=== PATIENT | female | born 1990 | race Caucasian/White ===

== ENCOUNTER 2020-08-25 00:19 | Inpatient (IN) | payer MEDICAID ==
--- NOTE | 2020-08-24 23:58 | PCM.LDHP ---
L&D History of Present Illness - General Date of Service: 08/24/20 Admit Problem/Dx: Patient Status Order with Admit Dx/Problem 08/24/20 23:50 Patient Status [ADT] Routine Admission Diagnosis/Problem Admission Diagnosis/Problem care Source of Information: Patient History Limitations: Reports: No Limitations - History of Present Illness Introduction:: 30-year-old at 40w0d (at midnight) presents to L&D for IOL due to term . Patient has been having Shelton Riggs contractions. Baby has been active. No vaginal bleeding or leaking of fluid. H&P Review of Systems - Review of Systems: Review Of Systems: See Below Free Text/Narrative: As of examination in clinic on 08/18/2020 General: Reports: No Symptoms HEENT: Reports: No Symptoms Pulmonary: Reports: No Symptoms Cardiovascular: Reports: No Symptoms Gastrointestinal: Reports: No Symptoms Genitourinary: Reports: No Symptoms Musculoskeletal: Reports: No Symptoms Skin: Reports: No Symptoms L&D Exam - Exam Exam: See Below (As of clinic appointment 08/18/2020) - OB Specific Movement: Active Heart Tones: Present Heart Tones per Min: 135 Presentation: Vertex - Peña Score Peña Score Cervix Position: Posterior Peña Score Consistency: Soft Peña Score Effacement: 31-50% Peña Score Dilation: 1-2 cm Peña Score Infant's Station: -2 Peña Score Total: 5 - Exam General: Alert, Oriented Lungs: Clear to Auscultation, Normal Respiratory Effort Cardiovascular: Regular Rate, Regular Rhythm. No: Systolic Murmur, Diastolic Murmur Genitourinary: Normal external exam Extremities: Pedal Edema (Trace bilaterally) Skin: Warm, Dry, Intact - Problem List (1) care SNOMED Code(s): 945857940, 78039850, 233632468, 353752394 ICD Code: Z34.90 - ENCNTR FOR SUPRVSN OF NORMAL , UNSP, UNSP TRIMESTER Status: Acute (2) Rh negative state in antepartum period SNOMED Code(s): 765544316 ICD Code: O26.899 - OTH RELATED CONDITIONS, UNSPECIFIED TRIMESTER; Z67.91 - UNSPECIFIED BLOOD TYPE, RH NEGATIVE Status: Acute (3) History of macrosomia in in prior , currently SNOMED Code(s): 59361459209555, 82791941834637 ICD Code: O09.299 - SUPRVSN OF PREG W POOR REPRODCTV OR OBSTET HISTORY, UNSP TRI Status: Acute (4) Impaired glucose in , antepartum SNOMED Code(s): 851360006, 648024142 ICD Code: O99.810 - ABNORMAL GLUCOSE COMPLICATING Status: Acute (5) Anemia in preg-unspec SNOMED Code(s): 23661973 ICD Code: O99.019 - ANEMIA COMPLICATING , UNSPECIFIED TRIMESTER Status: Acute Problem List Initiated/Reviewed/Updated: Yes Orders Last 24hrs: Active Orders 24 hr Category Date Time Status Patient Status [ADT] Routine ADT 08/24/20 23:50 Ordered Communication Order [RC] ASDIRECTED Care 08/24/20 23:50 Ordered Communication Order [RC] ASDIRECTED Care 08/24/20 23:52 Ordered Communication Order [RC] ASDIRECTED Care 08/24/20 23:52 Ordered Communication Order [RC] ASDIRECTED Care 08/24/20 23:52 Ordered Communication Order [RC] ASDIRECTED Care 08/24/20 23:52 Ordered Heart Tones [RC] PER UNIT ROUTINE Care 08/24/20 23:50 Ordered Monitoring [RC] PER UNIT ROUTINE Care 08/24/20 23:52 Ordered Nitrous Oxide Delivery [RC] ASDIRECTED Care 08/24/20 23:52 Ordered Notify Provider Vital Signs OB [RC] ASDIRECTED Care 08/24/20 23:50 Ordered Notify Provider [RC] PRN Care 08/24/20 23:50 Ordered Notify Provider [RC] PRN Care 08/24/20 23:52 Ordered Notify Provider [RC] PRN Care 08/24/20 23:52 Ordered Notify Provider [RC] STAT Care 08/24/20 23:52 Ordered OB Discontinue Nitrous Oxide [RC] ASDIRECTED Care 08/24/20 23:52 Ordered Pump Management, Intrathecal [RC] ASDIRECTED Care 08/24/20 23:50 Ordered Up ad Madai [RC] ASDIRECTED Care 08/24/20 23:50 Ordered Vaginal Exam [RC] PRN Care 08/24/20 23:52 Ordered Vital Signs [RC] PER UNIT ROUTINE Care 08/24/20 23:50 Ordered Regular Diet [DIET] Diet 08/25/20 Breakfast Ordered CBC W/O DIFF,HEMOGRAM [HEME] Routine Lab 08/24/20 23:50 Ordered CORONAVIRUS COVID-19 PCR PHL Stat Lab 08/24/20 23:50 Ordered Acetaminophen [TylenoL] Med 08/24/20 23:50 Ordered 650 mg PO Q4H PRN Butorphanol [Stadol] Med 08/24/20 23:50 Ordered 0.5 mg IVPUSH Q3H PRN Butorphanol [Stadol] Med 08/24/20 23:50 Ordered 1 mg IVPUSH Q3H PRN Carboprost Tromethamine [Hemabate DS] Med 08/24/20 23:50 Ordered 250 mcg IM ASDIRECTED PRN Lactated Ringers @ 125 MLS/HR(1000ml) Med 08/24/20 23:45 Ordered Lactated Ringers [Ringers, Lactated] 1,000 ml IV ASDIRECTED Lactated Ringers [Ringers, Lactated] 1,000 ml Med 08/24/20 23:50 Ordered IV BOLUS Lidocaine 1% [Xylocaine-MPF 1%] Med 08/24/20 23:50 Ordered 30 ml INJECT ASDIRECTED PRN Methylergonovine [Methergine] Med 08/24/20 23:50 Ordered 0.2 mg IM ASDIRECTED PRN Ondansetron [Zofran] Med 08/24/20 23:50 Ordered 4 mg IVPUSH Q4H PRN Oxytocin 30 Units in NS @ 2 MUNITS/MIN(500ml) Med 08/24/20 23:45 Ordered Oxytocin/Normal Saline [Pitocin in NS 30 UNIT/500 ML] 30 unit in 500 ml IV TITRATE Sodium Chloride 0.9% [Saline Flush] Med 08/24/20 23:50 Ordered 10 ml FLUSH ASDIRECTED PRN Tranexamic Acid [Cyklokapron] 1,000 mg Med 08/24/20 23:50 Ordered Sodium Chloride 0.9% [Normal Saline] 100 ml IV ONETIME fentaNYL [Sublimaze] Med 08/24/20 23:50 Ordered 100 mcg IVPUSH Q1H PRN miSOPROStoL [Cytotec] Med 08/24/20 23:52 Ordered 25 mcg VAG Q4H PRN miSOPROStoL [Cytotec] Med 08/24/20 23:50 Ordered 800 mcg RECTAL ASDIRECTED PRN Saline Lock Insert [OM.PC] Routine Oth 08/24/20 23:50 Ordered Resuscitation Status Routine Resus Stat 08/24/20 23:50 Ordered Medication Orders Acetaminophen (Tylenol) 650 mg PO Q4H PRN PRN Reason: Pain (Mild 1-3) and fever Butorphanol Tartrate (Stadol) 0.5 mg IVPUSH Q3H PRN PRN Reason: Pain Butorphanol Tartrate (Stadol) 1 mg IVPUSH Q3H PRN PRN Reason: Pain Carboprost Tromethamine (Hemabate Ds) 250 mcg IM ASDIRECTED PRN PRN Reason: HEMORRHAGE Fentanyl (Sublimaze) 100 mcg IVPUSH Q1H PRN PRN Reason: Pain (moderate 4-6) Tranexamic Acid 1,000 mg/ (Sodium Chloride) 110 mls @ 660 mls/hr IV ONETIME PRN PRN Reason: Bleeding Lactated Ringer's (Ringers, Lactated) 1,000 mls @ 999 mls/hr IV BOLUS ONE Stop: 08/25/20 00:50 Lactated Ringer's (Ringers, Lactated) 1,000 mls @ 125 mls/hr IV ASDIRECTED MEEK Oxytocin/Sodium Chloride (Pitocin In Ns 30 Unit/500 Ml) 30 unit in 500 mls @ 2 mls/hr IV TITRATE MEEK; Protocol Lidocaine HCl (Xylocaine-Mpf 1%) 30 ml INJECT ASDIRECTED PRN PRN Reason: Perineal Repair Methylergonovine Maleate (Methergine) 0.2 mg IM ASDIRECTED PRN PRN Reason: Hemorrhage Misoprostol (Cytotec) 800 mcg RECTAL ASDIRECTED PRN PRN Reason: Hemorrhage Misoprostol (Cytotec) 25 mcg VAG Q4H PRN PRN Reason: cervical ripening Ondansetron HCl (Zofran) 4 mg IVPUSH Q4H PRN PRN Reason: Nausea/Vomiting Sodium Chloride (Saline Flush) 10 ml FLUSH ASDIRECTED PRN PRN Reason: Keep Vein Open Assessment/Plan Comment:: 30-year-old at 40w0d for IOL 1. Initiate routine intrapartum orders 2. Plan for cervical ripening with Cytotec 3. Pitocin and AROM planned for augmentation as needed 4. Expectant management. Anticipate Felicitas Smith MD
[~2020-08-25 00:19] MED LIST: Butorphanol 2 MG/ML SDV IVPUSH PRN; Carboprost Tromethamine 250 MCG/1 ML Amp IM PRN; Lactated Ringers 1,000 ML IV ONE; Lidocaine 1% 30 ML SDV INJECT PRN; Methylergonovine 0.2 MG/1 ML Amp IM PRN; Misoprostol 400 MCG (4 X 100 MCG TAB) RECTAL PRN; Ondansetron 4 MG/2 ML SDV IVPUSH PRN; Oxytocin/Normal Saline 30 UNIT/500 ML BAG IV SCH; Sodium Chloride 0.9% 10 ML Syringe FLUSH PRN; Tranexamic Acid 1,000 MG in Sodium Chloride 0.9% 100 ML IV PRN; fentaNYL 100 MCG/2 ML SDV IVPUSH PRN
[2020-08-25] MEDS ORDERED: Sodium Bicarbonate 4.2% 2.5 MEQ/5 ML SDV ONE ×2 (00:30→10:43)
[2020-08-25] MEDS ORDERED: EPINEPHrine 1 MG/1 ML Amp ONE ×2 (00:30→10:43)
[2020-08-25] MEDS ORDERED: fentaNYL 100 MCG/2 ML SDV ITHECAL ONE (00:30)
[2020-08-25] MEDS: Misoprostol 25 MCG (1/4 of 100 MCG) Tab VAG PRN ×2 (01:33→05:35)
[2020-08-25] MEDS: Lactated Ringers 1,000 ML IV SCH ×2 (10:10→11:01)
[2020-08-25] MEDS ORDERED: fentaNYL 100 MCG/2 ML SDV ONE (10:43)
--- NOTE | 2020-08-25 11:03 | PCM.SN.2 ---
- Free Text/Narrative Note: Intrathecal. Sitting position, sterile prep and drape. 1% lidocaine w bicarb for skinwheal to L2 L3 interspace, introducer, 24 ga pencan x 1. Pos CSF, neg heme, neg parasthesia. 0.1 ml pf 1:1000 epi, 20 mcg pf sufenta, 30 mcg pf fentanyl, 0.4 ml pf ns and 6 mg of 0.75% marcaine injected after CSF aspiration. Pt to L lateral position. Procedure time 1045 to 1115
--- NOTE | 2020-08-25 13:43 | PCM.DEL ---
L & D Note - General Info Date of Service: 08/25/20 Mother's Due Date: 08/25/20 - Delivery Note Labor: Augmented by ARM Cervical Ripening Method: Misoprostil Delivery Outcome: Livebirth Infant Delivery Method: Spontaneous Vaginal Delivery-Single Infant Delivery Mode: Spontaneous Presentation: Left Occiput Posterior (LOP) Nuchal Cord: None Anesthesia Type: Intrathecal, Nitrous Oxide Amniotic Fluid Description: Clear Episiotomy Type: None Laceration: Periurethral Placenta: Intact Cord: 3 Vessels Estimated Blood Loss: 50 Resuscitation Needed: Yes [place]: Bulb Syringe Provider: Felicitas Smith Score 1 min: 8 Score 5 min: 9 Delivery Comments (Free Text/Narrative):: Patient is now a that presented for induction of labor secondary to anemia and history of macrosomia. Induction with cytotec x2 doses augmented with AROM. Patient progressed to complete without complication. uncomplicated . Delivered viable infant girl weighing 3990g at 1322. Placenta delivered spontaneous shortly after. Delivery over intact perineum. - General Info Date of Service: 08/25/20 Admission Dx/Problem (Free Text): Patient Status Order with Admit Dx/Problem 08/24/20 23:50 Patient Status [ADT] Routine Admission Diagnosis/Problem Admission Diagnosis/Problem care Functional Status: Reports: Pain Controlled - Review of Systems General: Reports: No Symptoms HEENT: Reports: No Symptoms Pulmonary: Reports: No Symptoms Cardiovascular: Reports: No Symptoms Gastrointestinal: Reports: No Symptoms Genitourinary: Reports: No Symptoms Musculoskeletal: Reports: No Symptoms Skin: Reports: No Symptoms Neurological: Reports: No Symptoms Psychiatric: Reports: No Symptoms - Patient Data Vitals - Most Recent: Last Vital Signs Temp 97.3 F 08/25/20 12:15 Pulse 78 08/25/20 12:15 Resp 18 08/25/20 12:15 BP 108/65 08/25/20 12:00 Pulse Ox 97 08/25/20 12:15 Weight - Most Recent: 291 lb I&O - Last 24 Hours: Intake & Output 08/24/20 08/25/20 08/25/20 22:59 06:59 14:59 Intake Total 1000 Balance 1000 Lab Results Last 24 Hours: Laboratory Results - last 24 hr 08/25/20 08/25/20 Range/Units 00:40 01:25 WBC 7.2 (5.0-10.0) 10^3/uL RBC 4.08 L (4.2-5.4) 10^6/uL Hgb 11.2 L (12.0-16.0) g/dL Hct 35.0 L (37.0-47.0) % MCV 85.8 (80-100) fL MCH 27.5 (27.0-34.0) pg MCHC 32.0 L (33.0-35.0) g/dL Plt Count 150 (150-450) 10^3/uL SARS CoV-2 RNA Rapid ALTA Negative (NEGATIVE) Med Orders - Current: Current Medications Acetaminophen (Tylenol) 650 mg PO Q4H PRN PRN Reason: Pain (Mild 1-3) and fever Butorphanol Tartrate (Stadol) 0.5 mg IVPUSH Q3H PRN PRN Reason: Pain Butorphanol Tartrate (Stadol) 1 mg IVPUSH Q3H PRN PRN Reason: Pain Carboprost Tromethamine (Hemabate Ds) 250 mcg IM ASDIRECTED PRN PRN Reason: HEMORRHAGE Fentanyl (Sublimaze) 100 mcg IVPUSH Q1H PRN PRN Reason: Pain (moderate 4-6) Tranexamic Acid 1,000 mg/ (Sodium Chloride) 110 mls @ 660 mls/hr IV ONETIME PRN PRN Reason: Bleeding Lactated Ringer's (Ringers, Lactated) 1,000 mls @ 125 mls/hr IV ASDIRECTED [facility] Last Admin: 08/25/20 11:01 Dose: 125 mls/hr Documented by: Oxytocin/Sodium Chloride (Pitocin In Ns 30 Unit/500 Ml) 30 unit in 500 mls @ 2 mls/hr IV TITRATE [facility]; Protocol Last Admin: 08/25/20 13:30 Dose: 500 munits/min, 500 mls/hr Documented by: Lidocaine HCl (Xylocaine-Mpf 1%) 30 ml INJECT ASDIRECTED PRN PRN Reason: Perineal Repair Methylergonovine Maleate (Methergine) 0.2 mg IM ASDIRECTED PRN PRN Reason: Hemorrhage Misoprostol (Cytotec) 800 mcg RECTAL ASDIRECTED PRN PRN Reason: Hemorrhage Misoprostol (Cytotec) 25 mcg VAG Q4H PRN PRN Reason: cervical ripening Last Admin: 08/25/20 05:35 Dose: 25 mcg Documented by: Ondansetron HCl (Zofran) 4 mg IVPUSH Q4H PRN PRN Reason: Nausea/Vomiting Last Admin: 08/25/20 10:38 Dose: 4 mg Documented by: Sodium Chloride (Saline Flush) 10 ml FLUSH ASDIRECTED PRN PRN Reason: Keep Vein Open Discontinued Medications Epinephrine HCl (Adrenalin) Confirm Administered Dose 1 mg .ROUTE .STK-MED ONE Stop: 08/25/20 10:44 Last Admin: 08/25/20 12:03 Dose: Not Given Documented by: Epinephrine HCl (Adrenalin) 0.1 mg .XX .STK-MED ONE Stop: 08/25/20 00:31 Fentanyl (Sublimaze) Confirm Administered Dose 100 mcg .ROUTE .STK-MED ONE Stop: 08/25/20 10:44 Last Admin: 08/25/20 12:05 Dose: Not Given Documented by: Fentanyl (Sublimaze) 30 mcg ITHECAL .STK-MED ONE Stop: 08/25/20 00:31 Lactated Ringer's (Ringers, Lactated) 1,000 mls @ 999 mls/hr IV BOLUS ONE Stop: 08/25/20 00:50 Sodium Bicarbonate (Sodium Bicarbonate 4.2%) Confirm Administered Dose 2.5 meq .ROUTE .STK-MED ONE Stop: 08/25/20 10:44 Last Admin: 08/25/20 12:04 Dose: Not Given Documented by: Sodium Bicarbonate (Sodium Bicarbonate 4.2%) 0.5 meq .XX .STK-MED ONE Stop: 08/25/20 00:31 Sufentanil Citrate (Sufenta) Confirm Administered Dose 50 mcg .ROUTE .STK-MED ONE Stop: 08/25/20 10:44 Last Admin: 08/25/20 12:05 Dose: Not Given Documented by: Sufentanil Citrate (Sufenta) 20 mcg ITHECAL .STK-MED ONE Stop: 08/25/20 00:31 - Exam (Female) Exam: Normal External Exam, Normal Bimanual Exam, Vaginal Bleeding (minimal) - Problem List & Annotations (1) (normal spontaneous vaginal delivery) SNOMED Code(s): 05530960, 658664566 Code(s): O80 - ENCOUNTER FOR FULL-TERM UNCOMPLICATED DELIVERY Status: Acute Current Visit: Yes - Problem List Review Problem List Initiated/Reviewed/Updated: Yes - Plan Plan:: 30-year-old now at 40w0d s/p 1. Initiate routine cares Lorin Senior MD
[2020-08-25] MEDS ORDERED: Tranexamic Acid 1,000 MG in Sodium Chloride 0.9% 100 ML IV PRN (13:55)
[2020-08-25] MEDS ORDERED: Sodium Chloride 0.9% 10 ML Syringe FLUSH PRN (13:55)
[2020-08-25] MEDS ORDERED: Benzocaine/Menthol 20%-0.5% Spray 56 GM Canister TOP PRN (14:00)
[2020-08-25] MEDS ORDERED: Simethicone 80 MG Tab.Chew PO PRN (14:00)
[2020-08-25] MEDS: Acetaminophen 325 MG Tab PO PRN (18:25)
[2020-08-25] MEDS: Ibuprofen 800 MG Tab PO PRN (18:27)
[2020-08-25] MEDS: Docusate Sodium 100 MG Cap PO PRN (21:18)
[2020-08-26] MEDS: Ibuprofen 800 MG Tab PO PRN ×2 (01:30→09:40)
[2020-08-26] MEDS: Acetaminophen 325 MG Tab PO PRN ×2 (01:31→08:47)
[2020-08-26] MEDS: Docusate Sodium 100 MG Cap PO PRN (08:47)
[2020-08-26] MEDS ORDERED: Prenatal Multivitamin with Calcium/Folic Acid/Iron Tab PO SCH (09:00)
--- NOTE | 2020-08-26 09:16 | PCM.PN ---
- General Info Date of Service: 08/26/20 Admission Dx/Problem (Free Text): Patient Status Order with Admit Dx/Problem 08/24/20 23:50 Patient Status [ADT] Routine Admission Diagnosis/Problem Admission Diagnosis/Problem care Subjective Update: patient reports doing well. she has been urinating well. Had a bowel movement last night. lochia is mild in nature. She is concerned as baby is not latching well and did have an episode of desaturation. This is causing her stress. otherwise doing well. Functional Status: Reports: Pain Controlled - Review of Systems General: Reports: Fever, Chills HEENT: Reports: No Symptoms Pulmonary: Reports: No Symptoms Cardiovascular: Reports: No Symptoms Gastrointestinal: Reports: No Symptoms Genitourinary: Reports: No Symptoms Musculoskeletal: Reports: No Symptoms Skin: Reports: No Symptoms Neurological: Reports: No Symptoms Psychiatric: Reports: No Symptoms - Patient Data Vitals - Most Recent: Last Vital Signs Temp 98.5 F 08/25/20 20:00 Pulse 80 08/25/20 20:00 Resp 18 08/25/20 20:00 BP 118/76 08/25/20 20:00 Pulse Ox 99 08/25/20 20:00 Weight - Most Recent: 291 lb I&O - Last 24 Hours: Intake & Output 08/25/20 08/26/20 08/26/20 22:59 06:59 14:59 Intake Total 1 Output Total 400 Balance -399 Lab Results Last 24 Hours: Laboratory Results - last 24 hr 08/25/20 08/26/20 Range/Units 01:24 05:52 WBC 5.4 (5.0-10.0) 10^3/uL RBC 3.39 L (4.2-5.4) 10^6/uL Hgb 9.4 L D (12.0-16.0) g/dL Hct 29.7 L (37.0-47.0) % MCV 87.6 (80-100) fL MCH 27.7 (27.0-34.0) pg MCHC 31.6 L (33.0-35.0) g/dL Plt Count 111 L (150-450) 10^3/uL Blood Type O NEGATIVE Gel Antibody Screen Negative Rhogam Indicated Yes, baby rh pos H Med Orders - Current: Current Medications Acetaminophen (Tylenol) 650 mg PO Q4H PRN PRN Reason: Pain (Mild 1-3) and fever Last Admin: 08/26/20 01:31 Dose: 650 mg Documented by: Benzocaine/Menthol (Dermoplast Pain Relief Almond) 0 gm TOP Q4H PRN PRN Reason: Perineal comfort measures Butorphanol Tartrate (Stadol) 0.5 mg IVPUSH Q3H PRN PRN Reason: Pain Butorphanol Tartrate (Stadol) 1 mg IVPUSH Q3H PRN PRN Reason: Pain Carboprost Tromethamine (Hemabate Ds) 250 mcg IM ASDIRECTED PRN PRN Reason: HEMORRHAGE Docusate Sodium (Colace) 100 mg PO BID PRN PRN Reason: Constipation Last Admin: 08/25/20 21:18 Dose: 100 mg Documented by: Fentanyl (Sublimaze) 100 mcg IVPUSH Q1H PRN PRN Reason: Pain (moderate 4-6) Tranexamic Acid 1,000 mg/ (Sodium Chloride) 110 mls @ 660 mls/hr IV ONETIME PRN PRN Reason: Bleeding Lactated Ringer's (Ringers, Lactated) 1,000 mls @ 125 mls/hr IV ASDIRECTED MEEK Last Admin: 08/25/20 11:01 Dose: 125 mls/hr Documented by: Oxytocin/Sodium Chloride (Pitocin In Ns 30 Unit/500 Ml) 30 unit in 500 mls @ 2 mls/hr IV TITRATE MEEK; Protocol Last Titration: 08/25/20 16:10 Dose: Infused Documented by: Ibuprofen (Motrin) 800 mg PO Q8H PRN PRN Reason: Mild Pain or Fever, use 2nd Last Admin: 08/26/20 01:30 Dose: 800 mg Documented by: Lidocaine HCl (Xylocaine-Mpf 1%) 30 ml INJECT ASDIRECTED PRN PRN Reason: Perineal Repair Methylergonovine Maleate (Methergine) 0.2 mg IM ASDIRECTED PRN PRN Reason: Hemorrhage Misoprostol (Cytotec) 800 mcg RECTAL ASDIRECTED PRN PRN Reason: Hemorrhage Misoprostol (Cytotec) 25 mcg VAG Q4H PRN PRN Reason: cervical ripening Last Admin: 08/25/20 05:35 Dose: 25 mcg Documented by: Ondansetron HCl (Zofran) 4 mg IVPUSH Q4H PRN PRN Reason: Nausea/Vomiting Last Admin: 08/25/20 10:38 Dose: 4 mg Documented by: Prenat Multivit/Open Cut Examiner/Iron/Folic Ac ( Plus Iron) 1 each PO DAILY MEEK Simethicone (Simethicone) 80 mg PO Q4HR PRN PRN Reason: Gas Sodium Chloride (Saline Flush) 10 ml FLUSH ASDIRECTED PRN PRN Reason: Keep Vein Open Witch Daisy (Medi-Pads) 1 each TOP Q4HR PRN PRN Reason: Perineal Comfort Measure Discontinued Medications Epinephrine HCl (Adrenalin) Confirm Administered Dose 1 mg .ROUTE .STK-MED ONE Stop: 08/25/20 10:44 Last Admin: 08/25/20 12:03 Dose: Not Given Documented by: Epinephrine HCl (Adrenalin) 0.1 mg .XX .STK-MED ONE Stop: 08/25/20 00:31 Fentanyl (Sublimaze) Confirm Administered Dose 100 mcg .ROUTE .STK-MED ONE Stop: 08/25/20 10:44 Last Admin: 08/25/20 12:05 Dose: Not Given Documented by: Fentanyl (Sublimaze) 30 mcg ITHECAL .STK-MED ONE Stop: 08/25/20 00:31 Lactated Ringer's (Ringers, Lactated) 1,000 mls @ 999 mls/hr IV BOLUS ONE Stop: 08/25/20 00:50 Last Admin: 08/25/20 19:56 Dose: Not Given Documented by: Sodium Bicarbonate (Sodium Bicarbonate 4.2%) Confirm Administered Dose 2.5 meq .ROUTE .STK-MED ONE Stop: 08/25/20 10:44 Last Admin: 08/25/20 12:04 Dose: Not Given Documented by: Sodium Bicarbonate (Sodium Bicarbonate 4.2%) 0.5 meq .XX .STK-MED ONE Stop: 08/25/20 00:31 Sufentanil Citrate (Sufenta) Confirm Administered Dose 50 mcg .ROUTE .STK-MED ONE Stop: 08/25/20 10:44 Last Admin: 08/25/20 12:05 Dose: Not Given Documented by: Sufentanil Citrate (Sufenta) 20 mcg ITHECAL .STK-MED ONE Stop: 08/25/20 00:31 - Exam General: Alert, Oriented Lungs: Clear to Auscultation, Normal Respiratory Effort Cardiovascular: Regular Rate, Regular Rhythm GI/Abdominal Exam: Normal Bowel Sounds (uterus 2cm below the umbilicus) Extremities: Pedal Edema (trace) Sepsis Event Note - Evaluation Sepsis Screening Result: No Definite Risk - Problem List & Annotations (1) (normal spontaneous vaginal delivery) SNOMED Code(s): 74733491, [id number] Code(s): O80 - ENCOUNTER FOR FULL-TERM UNCOMPLICATED DELIVERY Status: Acute Current Visit: Yes - Problem List Review Problem List Initiated/Reviewed/Updated: Yes - My Orders Last 24 Hours: My Active Orders 08/25/20 13:55 Up ad Madai [RC] ASDIRECTED Assess Lochia [WOMSER] Per Unit Routine Assess Uterine Involution [WOMSER] Per Unit Routine Breast Pump [WOMSER] Per Unit Routine Ice Therapy [OM.PC] Per Unit Routine Perineal Care [OM.PC] Per Unit Routine Saline Lock Insert [OM.PC] Urgent Sitz Bath [OM.PC] Per Unit Routine 08/25/20 14:00 Benzocaine/Menthol [Dermoplast Pain Relief Almond] See Dose Instructions TOP Q4H PRN Docusate Sodium [Colace] 100 mg PO BID PRN Ibuprofen [Motrin] 800 mg PO Q8H PRN Simethicone 80 mg PO Q4HR PRN witch Daisy [Medi-Pads] 1 each TOP Q4HR PRN 08/25/20 14:07 Resuscitation Status Routine 08/25/20 Dinner Regular Diet [DIET] 08/26/20 05:52 MATERNAL BLEED, SCREEN [REF] Routine 08/26/20 09:00 Vit with Ca/FA/Iron [ Plus Iron] 1 each PO DAILY - Plan Plan:: 30-year-old now at 40w0d PPD1 of a 1. continue routine cares 2. work on and encourage 3. likely will discharge tomorrow Lorin Senior MD
--- NOTE | 2020-08-26 16:09 | PCM.DCSUM1 ---
Discharge Summary - Hospital Course Free Text/Narrative:: Patient admitted for IOL secondary to anemia and history of macrosomia. Delivered viable infant girl on 08/25/2020 vis . Post period uncomplicated. Diagnosis: Stroke: No - Discharge Data Discharge Date: 08/26/20 Discharge Disposition: Home, Self-Care 01 Condition: Good - Referral to Home Health Primary Care Physician: Mariaa Smith MD - Discharge Diagnosis/Problem(s) (1) (normal spontaneous vaginal delivery) SNOMED Code(s): 30705027, [id number] ICD Code: O80 - ENCOUNTER FOR FULL-TERM UNCOMPLICATED DELIVERY Status: Acute Current Visit: Yes - Patient Instructions Diet: Usual Diet as Tolerated Activity: As Tolerated (Pelvic rest until appointment ) Driving: May Drive Today Showering/Bathing: May Shower Notify Provider of: Fever, Increased Pain, Nausea and/or Vomiting - Discharge Plan *PRESCRIPTION DRUG MONITORING PROGRAM REVIEWED*: Yes *COPY OF PRESCRIPTION DRUG MONITORING REPORT IN PATIENT JESSE: Not Applicable Home Medications: Home Meds Ferrous Sulfate 325 mg PO DAILY 08/25/20 [History] Pnv No.95/Ferrous Fum/Folic AC [ Caplet] 1 each PO DAILY 08/25/20 [History] Oxygen Therapy Mode: Room Air Patient Handouts: Vaginal Delivery, Care After Vaginal Delivery Referrals: Felicitas Smith MD [Primary Care Provider] - (Please schedule 6 week appointment with PCP. ) - Discharge Summary/Plan Comment DC Time >30 min.: Yes Discharge Summary/Plan Comment: Home to self care perineal cares - General Info Date of Service: 08/26/20 Admission Dx/Problem (Free Text: Patient Status Order with Admit Dx/Problem 08/24/20 23:50 Patient Status [ADT] Routine Admission Diagnosis/Problem Admission Diagnosis/Problem IOL Subjective Update: patient reports doing well. she has been urinating well. Had a bowel movement last night. lochia is mild in nature. She is concerned as baby is not latching well and did have an episode of desaturation. This is causing her stress. otherwise doing well. By 1600 infant latch and feeding had significantly improved. Parents more comfortable with discharge home. Functional Status: Reports: Pain Controlled - Review of Systems General: Reports: No Symptoms HEENT: Reports: No Symptoms Pulmonary: Reports: No Symptoms Cardiovascular: Reports: No Symptoms Gastrointestinal: Reports: No Symptoms Genitourinary: Reports: No Symptoms Musculoskeletal: Reports: No Symptoms Skin: Reports: No Symptoms Neurological: Reports: No Symptoms Psychiatric: Reports: No Symptoms - Patient Data Vitals - Most Recent: Last Vital Signs Temp 98.1 F 08/26/20 08:00 Pulse 86 08/26/20 08:00 Resp 16 08/26/20 08:00 BP 122/83 08/26/20 08:00 Pulse Ox 100 08/26/20 08:00 Weight - Most Recent: 291 lb Lab Results - Last 24 hrs: Laboratory Results - last 24 hr 08/25/20 08/26/20 Range/Units 01:24 05:52 WBC 5.4 (5.0-10.0) 10^3/uL RBC 3.39 L (4.2-5.4) 10^6/uL Hgb 9.4 L D (12.0-16.0) g/dL Hct 29.7 L (37.0-47.0) % MCV 87.6 (80-100) fL MCH 27.7 (27.0-34.0) pg MCHC 31.6 L (33.0-35.0) g/dL Plt Count 111 L (150-450) 10^3/uL Blood Type O NEGATIVE Gel Antibody Screen Negative Rhogam Indicated Yes, baby rh pos H Med Orders - Current: Current Medications Acetaminophen (Tylenol) 650 mg PO Q4H PRN PRN Reason: Pain (Mild 1-3) and fever Last Admin: 08/26/20 08:47 Dose: 650 mg Documented by: Benzocaine/Menthol (Dermoplast Pain Relief [place]) 0 gm TOP Q4H PRN PRN Reason: Perineal comfort measures Butorphanol Tartrate (Stadol) 0.5 mg IVPUSH Q3H PRN PRN Reason: Pain Butorphanol Tartrate (Stadol) 1 mg IVPUSH Q3H PRN PRN Reason: Pain Carboprost Tromethamine (Hemabate Ds) 250 mcg IM ASDIRECTED PRN PRN Reason: HEMORRHAGE Docusate Sodium (Colace) 100 mg PO BID PRN PRN Reason: Constipation Last Admin: 08/26/20 08:47 Dose: 100 mg Documented by: Fentanyl (Sublimaze) 100 mcg IVPUSH Q1H PRN PRN Reason: Pain (moderate 4-6) Tranexamic Acid 1,000 mg/ (Sodium Chloride) 110 mls @ 660 mls/hr IV ONETIME PRN PRN Reason: Bleeding Lactated Ringer's (Ringers, Lactated) 1,000 mls @ 125 mls/hr IV ASDIRECTED MEEK Last Admin: 08/25/20 11:01 Dose: 125 mls/hr Documented by: Oxytocin/Sodium Chloride (Pitocin In Ns 30 Unit/500 Ml) 30 unit in 500 mls @ 2 mls/hr IV TITRATE MEEK; Protocol Last Titration: 08/25/20 16:10 Dose: Infused Documented by: Ibuprofen (Motrin) 800 mg PO Q8H PRN PRN Reason: Mild Pain or Fever, use 2nd Last Admin: 08/26/20 09:40 Dose: 800 mg Documented by: Lidocaine HCl (Xylocaine-Mpf 1%) 30 ml INJECT ASDIRECTED PRN PRN Reason: Perineal Repair Methylergonovine Maleate (Methergine) 0.2 mg IM ASDIRECTED PRN PRN Reason: Hemorrhage Misoprostol (Cytotec) 800 mcg RECTAL ASDIRECTED PRN PRN Reason: Hemorrhage Misoprostol (Cytotec) 25 mcg VAG Q4H PRN PRN Reason: cervical ripening Last Admin: 08/25/20 05:35 Dose: 25 mcg Documented by: Ondansetron HCl (Zofran) 4 mg IVPUSH Q4H PRN PRN Reason: Nausea/Vomiting Last Admin: 08/25/20 10:38 Dose: 4 mg Documented by: Prenat Multivit/Hot Plate [employer]/Iron/Folic Ac ( Plus Iron) 1 each PO DAILY [facility] Last Admin: 08/26/20 08:48 Dose: 1 each Documented by: Simethicone (Simethicone) 80 mg PO Q4HR PRN PRN Reason: Gas Sodium Chloride (Saline Flush) 10 ml FLUSH ASDIRECTED PRN PRN Reason: Keep Vein Open Witch Daisy (Medi-Pads) 1 each TOP Q4HR PRN PRN Reason: Perineal Comfort Measure Discontinued Medications Epinephrine HCl (Adrenalin) Confirm Administered Dose 1 mg .ROUTE .STK-MED ONE Stop: 08/25/20 10:44 Last Admin: 08/25/20 12:03 Dose: Not Given Documented by: Epinephrine HCl (Adrenalin) 0.1 mg .XX .STK-MED ONE Stop: 08/25/20 00:31 Fentanyl (Sublimaze) Confirm Administered Dose 100 mcg .ROUTE .STK-MED ONE Stop: 08/25/20 10:44 Last Admin: 08/25/20 12:05 Dose: Not Given Documented by: Fentanyl (Sublimaze) 30 mcg ITHECAL .STK-MED ONE Stop: 08/25/20 00:31 Lactated Ringer's (Ringers, Lactated) 1,000 mls @ 999 mls/hr IV BOLUS ONE Stop: 08/25/20 00:50 Last Admin: 08/25/20 19:56 Dose: Not Given Documented by: Sodium Bicarbonate (Sodium Bicarbonate 4.2%) Confirm Administered Dose 2.5 meq .ROUTE .STK-MED ONE Stop: 08/25/20 10:44 Last Admin: 08/25/20 12:04 Dose: Not Given Documented by: Sodium Bicarbonate (Sodium Bicarbonate 4.2%) 0.5 meq .XX .STK-MED ONE Stop: 08/25/20 00:31 Sufentanil Citrate (Sufenta) Confirm Administered Dose 50 mcg .ROUTE .STK-MED ONE Stop: 08/25/20 10:44 Last Admin: 08/25/20 12:05 Dose: Not Given Documented by: Sufentanil Citrate (Sufenta) 20 mcg ITHECAL .STK-MED ONE Stop: 08/25/20 00:31 - Exam Physical Findings Comments:: please see AM progress note for exam
== END 2020-08-26 17:00 | disposition home or self-care (01) | DRG 807 ==
LOC: DL.OBCHECK 00:19 → DL.OB 00:29 → OBSVTOIN 13:22 → DL.OB 13:22
PROVIDERS: ADMIT Family Medicine; ATTEND Family Medicine
PROC: 10E0XZZ Delivery of Products of Conception, External Approach (ICD-10-PCS; principal; 2020-08-25)
PROC: 10907ZC Drainage of Amniotic Fluid, Therapeutic from Products of Conception, Via Natural or Artificial Opening (ICD-10-PCS; 2020-08-25)
PROC: 3E033VJ Introduction of Other Hormone into Peripheral Vein, Percutaneous Approach (ICD-10-PCS; 2020-08-25)
PROC: 3E0234Z Introduction of Serum, Toxoid and Vaccine into Muscle, Percutaneous Approach (ICD-10-PCS; 2020-08-25)
DX: O99.02 Anemia complicating childbirth (principal); O48.0 Post-term pregnancy; O26.893 Other specified pregnancy related conditions, third trimester; O99.814 Abnormal glucose complicating childbirth; Z20.828 Contact with and (suspected) exposure to other viral communicable diseases; D64.9 Anemia, unspecified; Z37.0 Single live birth; Z3A.40 40 weeks gestation of pregnancy; Z87.891 Personal history of nicotine dependence; Z79.899 Other long term (current) drug therapy; Z67.41 Type O blood, Rh negative
CPT/HCPCS: 01967; 36415; 36430; 59025; 59409; 85027; 85461; 86850; 86900; 86901; A9270-GY; J0171; J2405; J2590; J2790; J3010; J7120; U0002

== ENCOUNTER 2023-04-26 07:54 | Inpatient (IN) | payer MEDICAID ==
[2023-04-26] MEDS ORDERED: fentaNYL 100 MCG/2 ML SDV IVPUSH PRN (08:38)
[2023-04-26] MEDS ORDERED: Misoprostol 400 MCG (4 X 100 MCG TAB) RECTAL PRN (08:38)
[2023-04-26] MEDS ORDERED: Lidocaine 1% 30 ML SDV INJECT PRN (08:38)
[2023-04-26] MEDS ORDERED: Methylergonovine 0.2 MG/1 ML Amp IM PRN (08:38)
[2023-04-26] MEDS ORDERED: Tranexamic Acid 1,000 MG in Sodium Chloride 0.9% 100 ML IV PRN (08:38)
[2023-04-26] MEDS ORDERED: Carboprost Tromethamine 250 MCG/1 ML Amp IM PRN (08:38)
[2023-04-26] MEDS ORDERED: Sodium Chloride 0.9% 10 ML Syringe FLUSH PRN (08:38)
[2023-04-26] MEDS ORDERED: Acetaminophen 325 MG Tab PO PRN (08:38)
[2023-04-26] MEDS ORDERED: Misoprostol 50 MCG (1/2 of 100 MCG) Tab VAG ONE (08:50)
[2023-04-26 08:51] LABS: HEMATOCRIT 33.7 % (37.0-47.0); HEMOGLOBIN 10.9 g/dL (12.0-16.0); MEAN CORPUSCULAR HEMOGLOBIN 27.3 pg (27.0-34.0); MEAN CORPUSCULAR HGB CONC 32.3 g/dL (33.0-35.0); MEAN CORPUSCULAR VOLUME 84.3 fL (80-100); WHITE BLOOD CELL COUNT,WBC 5.4 10^3/uL (5.0-10.0)
[2023-04-26] MEDS: Lactated Ringers 1,000 ML IV SCH ×2 (14:38→17:31)
[2023-04-26] MEDS: Oxytocin/Normal Saline 30 UNIT/500 ML BAG IV SCH ×2 (14:41→22:42)
[2023-04-26] MEDS ORDERED: fentaNYL 100 MCG/2 ML SDV IV ONE (17:00)
[2023-04-26] MEDS: Ondansetron 4 MG/2 ML SDV IVPUSH PRN ×2 (17:00→22:08)
[2023-04-26] MEDS ORDERED: Bupivacaine 0.25% 10 ML SDV INJECT ONE (17:00)
[2023-04-26] MEDS ORDERED: fentaNYL 100 MCG/2 ML SDV ONE ×2 (17:02→19:18)
[2023-04-26] MEDS ORDERED: Bupivacaine 0.25% 10 ML SDV ONE ×2 (17:02→19:18)
[2023-04-26] MEDS ORDERED: ePHEDrine 50 MG/ML SDV IVPUSH PRN (17:20)
[2023-04-26] MEDS ORDERED: Phenylephrine HCl In 0.9% NaCl 1 MG/10 ML Syringe IVPUSH PRN (17:20)
[2023-04-26] MEDS: Lactated Ringers 1,000 ML IV ONE ×2 (17:30→17:32)
[2023-04-26] MEDS ORDERED: Ropivacaine 200 MG in Premix Bag 1 BAG EPIDUR SCH (17:30)
[2023-04-26] MEDS ORDERED: Oxytocin 10 Units/1 ML SDV IM PRN (20:57)
[2023-04-26] MEDS ORDERED: Simethicone 80 MG Tab.Chew PO PRN (20:57)
[2023-04-26] MEDS ORDERED: Benzocaine/Menthol 20%-0.5% Spray 78 GM Cannister TOP PRN (20:57)
[2023-04-27] MEDS: Ibuprofen 800 MG Tab PO PRN ×3 (02:40→12:58)
[2023-04-27 07:09] LABS: HEMATOCRIT 31.2 % (37.0-47.0); HEMOGLOBIN 9.8 g/dL (12.0-16.0); MEAN CORPUSCULAR HEMOGLOBIN 26.9 pg (27.0-34.0); MEAN CORPUSCULAR HGB CONC 31.4 g/dL (33.0-35.0); MEAN CORPUSCULAR VOLUME 85.7 fL (80-100); RED BLOOD CELL COUNT 3.64 10^6/uL (4.2-5.4); WHITE BLOOD CELL COUNT,WBC 5.7 10^3/uL (5.0-10.0)
[2023-04-27] MEDS ORDERED: Prenatal Multivitamin with Calcium/Folic Acid/Iron Tab PO SCH (09:00)
[2023-04-27] MEDS: Acetaminophen 325 MG Tab PO PRN ×2 (09:25→20:55)
[2023-04-27] MEDS: Docusate Sodium 100 MG Cap PO PRN ×2 (12:55→20:55)
== END 2023-04-27 21:20 | disposition home or self-care (01) | DRG 807 ==
LOC: DL.OBCHECK 07:54 → DL.OB 08:38 → OBSVTOIN 20:32
PROVIDERS: ADMIT Family Medicine; ATTEND Family Medicine
PROC: 10E0XZZ Delivery of Products of Conception, External Approach (ICD-10-PCS; principal; 2023-04-26)
PROC: 10907ZC Drainage of Amniotic Fluid, Therapeutic from Products of Conception, Via Natural or Artificial Opening (ICD-10-PCS; 2023-04-26)
PROC: 3E0P7VZ Introduction of Hormone into Female Reproductive, Via Natural or Artificial Opening (ICD-10-PCS; 2023-04-26)
PROC: 3E0R3BZ Introduction of Anesthetic Agent into Spinal Canal, Percutaneous Approach (ICD-10-PCS; 2023-04-26)
PROC: 00HU33Z Insertion of Infusion Device into Spinal Canal, Percutaneous Approach (ICD-10-PCS; 2023-04-26)
DX: O99.214 Obesity complicating childbirth (principal); Z37.0 Single live birth; O99.02 Anemia complicating childbirth; O99.343 Other mental disorders complicating pregnancy, third trimester; O43.893 Other placental disorders, third trimester; O26.893 Other specified pregnancy related conditions, third trimester; D64.9 Anemia, unspecified; F32.A Depression, unspecified; F41.9 Anxiety disorder, unspecified; Z67.91 Unspecified blood type, Rh negative; Z79.899 Other long term (current) drug therapy; Z3A.39 39 weeks gestation of pregnancy
CPT/HCPCS: 01967; 36415; 59025; 59409; 85027; A9270-GY; J2210; J2405; J2590; J2795; J3010; J3490; J7120